=== PATIENT | female | born 2000 | race Hispanic/Latino ===

== ENCOUNTER 2025-06-28 00:14 | Emergency (ER) | payer BC ==
[~2025-06-28] VITALS: Ht 152.4 cm; Wt 70.8 kg
[2025-06-28 00:34] LABS: APPEARANCE,URINE CLEAR (CLEAR); GLUCOSE, URINE (UA) NEGATIVE (NEGATIVE); LEUKOCYTE ESTERASE ,URINE 250 Leu/uL (NEGATIVE); NITRATE,URINE NEGATIVE (NEGATIVE); OCCULT BLOOD,URINE SMALL (NEGATIVE)
[2025-06-28 00:35] LABS: ADD UA MICROSCOPIC YES
[2025-06-28 00:36] LABS: HCG,QUALITATIVE URINE NEGATIVE (NEGATIVE); SQUAMOUS EPITHELIAL CELL,UR MOD /HPF (0-2)
[2025-06-28] MEDS: 0.9%NACL 1000ML 1,000 ML IV ONE (00:46)
[2025-06-28 00:55] LABS: IMMATURE GRANULOCYTE ABSOLUTE 0.05 K/uL (0-1); NUCLEATED RED BLOOD CELLS 0.0 % (0.0-0.19); PLATELET COUNT (AUTO) 333 K/uL (130-400); RED BLOOD CELL COUNT(AUTO) 4.94 MIL/uL (4.00-5.50); RED CELL DISTRIBUTION WIDTH 12.6 % (11.0-15.5); WHITE BLOOD COUNT (AUTO) 10.6 K/uL (4.8-10.8)
[2025-06-28 01:16] LABS: CREATININE 0.7 mg/dL (0.5-1.0); GLOMERULAR FILTR. RATE CALC 124.0 mL/min (>90); GLUCOSE,RANDOM 95.0 mg/dL (70-105); SODIUM SERUM 140.0 mmol/L (136-145); UREA NITROGEN, BLOOD 15.0 mg/dL (7-18)
[2025-06-28 01:20] LABS: ASPARTATE AMINOTRANSFERASE 33.0 U/L (10-37); TOTAL PROTEIN, SERUM 8.5 g/dL (6.0-8.3)
--- NOTE | 2025-06-28 02:12 | ERN ---
ED Note History of Present Illness Stated Complaint: C/O ABD PAIN WITH N X V X 5 DAYS Chief Complaint: Abdominal Pain Time Seen by MD: 00:20 Time Seen by Midlevel: 00:20 Dictation: The patient is a 25-year-old female with no significant past medical history who presents to the emergency department with complaints of lower abdominal pain associated with nausea and vomiting onset five days ago. Patient reports one episode of nonbloody diarrhea. Denies any fevers. Allergies: Coded Allergies: amoxicillin (Unverified Allergy, Unknown, 06/28/25) Past Medical History Past Medical History: No Pertinent History Surgical History: None LMP: Apr 11, 2025 RN Note Reviewed/Agreed w/PFSH: Yes Review of System Dictation Constitutional: Negative for fever,chills, and weight loss Eyes: Negative for injury, pain,redness, and discharge ENT: Negative for injury,pain or swelling Cardiovascular: Negative for chest pain, palpitations, and edema Respiratory: Negative for shortness of breath, cough, and wheezing, Abdomen/GI: Negative for constipation positive for abdominal pain, nausea, vomiting, diarrhea, and Back: Negative for injury and pain : Negative for injury, bleeding and discharge MS/Extremity: Negative for injury and deformity Skin: Negative for rash, and discoloration Neuro: Negative for headache, weakness, numbness, tingling, and seizure Psych: Negative for suicide ideation, homicidal ideation, and hallucinations Initial Vital Sign VS Vital Signs Date Time Temp Pulse Resp B/P (MAP) Pulse Ox O2 Delivery O2 Flow Rate FiO2 06/28/25 00:17 99.1 85 20 114/83 98 Room Air Physical Exam Dictation Vital Signs reviewed General Appearance: Alert, oriented x 3, no acute distress, well developed, nourished. Head and Face: non-traumatic. Eyes: PERRL, pink conjunctivas, eyelid no trauma, anterior chamber with arcus senilis. Ears: Pinnas intact and no signs of trauma or erythema ear canals clear and no discharge TM no erythema Nose: No discharge, no bleeding. Oropharynx: Mouth normal, tongue pink. pharynx clear,no erythema, tonsils no exudates, no abscesses noted, mucous membrane moist Neck: Supple, non-tender, no thyromegaly, no masses, no JVD, no bruits Breast:Deferred Chest:No tenderness, no crepitus, no paradoxical movement, no retractions Lungs:Clear, well-ventilated, symmetric, no rales, no wheezing, no rhonchi, no stridor, good breath sounds bilaterally Heart: Regular rate, regular rhythm, no murmur, no gallops Vascular: no peripheral edema, Abdomen: Soft, positive bowel sounds, nondistended, no guarding, Lower abdominal tenderness, no rebound, no masses no hepatomegaly, no splenomegaly, no Guy's sign, no hernias. Rectal: Deferred Genital: Deferred Neurological: Normal speech, motor function intact, sensory function intact Musculoskeletal: Neck nontender, full range of motion, back nontender, full range of motion, Extremities: nontender, full range of motion Skin: Color pink, dry, no turgor, no rash, no lacerations, no abrasions, no contusions. Lymphatic: Deferred Results (Laboratory/Radiology) Laboratory/Radiology Laboratory Tests Test 06/28/25 00:25 06/28/25 00:44 Urine Color LIGHT-YELLOW (YELLOW) Urine Appearance CLEAR (CLEAR) Urine pH 5.5 (5.0-8.0) Urine Specific [place] 1.023 (1.001-1.031) Urine Protein NEGATIVE mg/dL (NEGATIVE) Urine Glucose (UA) NEGATIVE mg/dL (NEGATIVE) Urine Ketones NEGATIVE mg/dL (NEGATIVE) Urine Occult Blood SMALL (NEGATIVE) H Urine Nitrate NEGATIVE (NEGATIVE) Urine Bilirubin NEGATIVE mg/dL (NEGATIVE) Urine Urobilinogen 0.2 mg/dL (0.2-1.0) Urine Leukocyte Esterase 250 Nanda/uL (NEGATIVE) H Urine RBC 2-5 /HPF (0-1) H Urine WBC 6-10 /HPF (0-1) H Urine Squamous Epithelial Cells MOD /HPF (0-2) Urine Bacteria RARE /HPF (None Seen) Urine HCG, Qualitative NEGATIVE (NEGATIVE) White Blood Count 10.6 K/uL (4.8-10.8) Red Blood Count 4.94 MIL/uL (4.00-5.50) Hemoglobin 14.5 g/dL (12.0-16.0) Hematocrit 42.7 % (36-48) Mean Corpuscular Volume 86.4 fL (79-99) Mean Corpuscular Hemoglobin 29.4 pg (27.0-33.0) Mean Corpuscular Hemoglobin Concent 34.0 g/dL (32.0-36.0) Red Cell Distribution Width 12.6 % (11.0-15.5) Platelet Count 333 K/uL (130-400) Mean Platelet Volume 10.3 fL (7.5-10.5) Immature Granulocyte % (Auto) 0.5 % (0-1) Neutrophils (%) (Auto) 59.6 % (40.0-77.0) Lymphocytes (%) (Auto) 31.1 % (21.0-51.0) Monocytes (%) (Auto) 6.5 % (3.0-13.0) Eosinophils (%) (Auto) 1.8 % (0.0-8.0) Basophils (%) (Auto) 0.5 % (0.0-5.0) Neutrophils # (Auto) 6.3 K/uL (1.8-7.7) Lymphocytes # (Auto) 3.3 K/uL (1.0-4.8) Monocytes # (Auto) 0.7 K/uL (0.1-1.0) Eosinophils # (Auto) 0.19 K/uL (0.00-0.70) Basophils # (Auto) 0.05 K/uL (0.00-0.20) Absolute Immature Granulocyte (auto 0.05 K/uL (0-1) Nucleated Red Blood Cells 0.0 % (0.0-0.19) Sodium Level 140 mmol/L (136-145) Potassium Level 3.8 mmol/L (3.5-5.1) Chloride Level 104 mmol/L (101-111) Carbon Dioxide Level 24 mmol/L (21-32) Blood Urea Nitrogen 15 mg/dL (7-18) Creatinine 0.7 mg/dL (0.5-1.0) Glomerular Filtration Rate Calc 124 mL/min (>90) Random Glucose 95 mg/dL (70-105) Total Calcium 9.0 mg/dL (8.5-10.1) Total Bilirubin 0.4 mg/dL (0.2-1.0) Aspartate Amino Transf (AST/SGOT) 33 U/L (10-37) Alanine Aminotransferase (ALT/SGPT) 54 U/L (12-78) Alkaline Phosphatase 72 U/L (50-136) Total Protein 8.5 g/dL (6.0-8.3) H Albumin 4.3 g/dL (3.5-5.0) Lipase 66 U/L (16-77) Labs Reviewed?: Yes ED Course ED Course Orders Procedure Category Date Status Time Cbc With Differential LAB 06/28/25 Complete 00:24 Comprehensive LAB 06/28/25 Complete Metabolic Panel 00:24 ,Urine Test LAB 06/28/25 Complete 00:24 Urinalysis Profile LAB 06/28/25 Complete 00:24 0.9%Nacl 1000ml (Ns PHA 06/28/25 Complete 1000ml) 00:30 Ondansetron 4mg Inj PHA 06/28/25 Complete (Zofran 4mg Inj) 00:30 Pantoprazole 40mg Inj PHA 06/28/25 Complete (Protonix 40mg Inj 00:30 Lipase LAB 06/28/25 Complete 00:24 Culture Urine DIALLO 06/28/25 In Process 00:35 Morphine 4mg Syg PHA 06/28/25 Complete (Morphine 4mg Syg) 02:00 Ct Abdomen/Pelvis CT 06/28/25 Resulted W/Contrast 01:33 Iohexol (Omnipaque) PHA 06/28/25 Complete 02:22 Current Medications Medications (Trade) Dose Ordered Sig/Tiffany Route PRN Reason Start Time Stop Time Status Last Admin Dose Admin Iohexol (Omnipaque) 75 ml STK-MED ONCE IV 06/28/25 02:22 06/28/25 02:23 DC Morphine Sulfate (morPHINE 4MG SYG) 4 mg ONCE ONCE IVP 06/28/25 02:00 06/28/25 02:01 DC 06/28/25 01:50 Ondansetron HCl (zoFRAN 4MG INJ) 4 mg ONCE ONCE IVP 06/28/25 00:30 06/28/25 00:31 DC 06/28/25 00:46 Pantoprazole Sodium (PROTonix 40MG INJ) 40 mg ONCE ONCE IVP 06/28/25 00:30 06/28/25 00:31 DC 06/28/25 00:46 Sodium Chloride 1,000 ml @ 0 mls/hr ONCE ONCE IV 06/28/25 00:30 06/28/25 00:31 DC 06/28/25 00:46 Vital Signs Date Time Temp Pulse Resp B/P (MAP) Pulse Ox O2 Delivery O2 Flow Rate FiO2 06/28/25 00:17 99.1 85 20 114/83 98 Room Air Medical Decision Making MDM The patient is a 25-year-old female with no significant past medical history who presents to the emergency department with complaints of lower abdominal pain associated with nausea and vomiting onset five days ago. Patient reports one episode of nonbloody diarrhea. Denies any fevers. Laboratory workup revealed a urinary tract infection. CT scan showed a ruptured ovarian cyst. I will discharge the patient on antibiotics. DX & DISP Disposition: Discharge Departure Impression: Primary Impression: UTI (urinary tract infection) Additional Impression: Ruptured cyst of left ovary Condition: Stable Scripts Nitrofurantoin Macrocrystal (Nitrofurantoin) 100 Mg Capsule 1 CAP PO BID for 7 Days, #14 CAP 0 Refills Prov: DELFINO FAUSTIN MD 06/28/25 Additional Instructions: I have a urinary tract infection. I have sent a prescription to your pharmacy. In addition it appears you may have ruptured a left ovarian cyst. There is no need for treatment for this. If you want you can follow-up with your primary care physician or your pr specialist. Please drink a lot of fluid this will help flush the bacteria from your bladder. Try and drink enough fluids so that your urine runs clear at least once a day. Referrals: JEREMY LINO (PCP) LAMIN SALINAS Jun 28, 2025 02:12 DELFINO FAUSTIN MD Jun 28, 2025 04:09
[2025-06-28] MEDS ORDERED: IOHEXOL-350 75 ML VIAL IV ONE (02:22)
--- NOTE | 2025-06-28 03:41 | HMCIMG ---
EXAM: CT Abdomen and Pelvis with IV contrast CLINICAL HISTORY: Pain. TECHNIQUE: Postcontrast thin collimated axial CT images of the abdomen and pelvis were obtained with sagittal and coronal reformatted images also submitted. CT scan is done according to ALARA (As Low As Reasonably Achievable). COMPARISON: None. FINDINGS: The included lungs are clear. Mild fatty liver. No focal abnormality within the gallbladder, pancreas, spleen, adrenals, or kidneys. Unremarkable urinary bladder. 2 cm collapsing cyst with irregular peripheral enhancement in the left ovary with trace free fluid in the cul-de-sac, likely a recently ruptured left ovarian follicle or cyst. Unremarkable uterus and right ovary. No obvious bowel wall thickening, dilatation, or obstruction. Unremarkable appendix. Grossly unremarkable abdominal vessels. No pathological lymphadenopathy in the abdomen or pelvis. No pneumoperitoneum. No acute bony abnormality is evident. IMPRESSIONS: 2 cm collapsing cyst with irregular peripheral enhancement in the left ovary with trace free fluid in the cul-de-sac, likely a recently ruptured left ovarian follicle or cyst. Mild fatty liver. /Hilary
[2025-06-28] MEDS ORDERED: NITR100C PO (04:08)
[2025-06-28 04:14] VITALS: BP 114/80; PULSE 83; RESP 18; TEMP 98.6; O2SAT 99
== END 2025-06-28 04:15 | disposition home or self-care (01) ==
LOC: EDH 00:14
DX: N39.0 Urinary tract infection, site not specified (principal); N83.202 Unspecified ovarian cyst, left side; Z88.0 Allergy status to penicillin
CPT/HCPCS: 99284; 74177; 96374; 96375; 96361; 80053; 83690; 85025; 87086 ×2; 87186; 81001; 81025; 36415; J7030; J2405; J2270; J2470; Q9967